=== PATIENT | male | born 1965 | race African-American/Black ===

== ENCOUNTER 2017-06-01 03:18 | Emergency (ER) | payer OTHER | END 2017-06-01 05:28 | disposition home or self-care (01) | LOC: ER 03:18 | DX: J32.9 Chronic sinusitis, unspecified (principal); Z88.8 Allergy status to other drugs, medicaments and biological substances | CPT/HCPCS: 99283 ==

== ENCOUNTER 2021-01-06 20:54 | Emergency (ER) | payer SELFPAY ==
[~2021-01-06] VITALS: Ht 170.2 cm; Wt 83.6 kg
[~2021-01-06 20:54] MED LIST: CEPH-264 PO; FEXO180T81 PO; MOME17SP NS
[2021-01-06 21:52] VITALS: BP 137/69
--- NOTE | 2021-01-06 22:27 | PHYS DOC ---
Past Medical History Past Medical History: No Pertinent History ([facility],[employer]) Past Surgical History: No Surgical History [facility] Smoking Status: Current Every Day Smoker Alcohol Use: Occasionally Drug Use: None [facility] General Adult EDM: Chief Complaint: HIP PAIN HPI: HPI: Patient is a 55 year old male who presents with lateral right hip pain after a fall. He walks with a cane. He states this was a month ago. He states he was not seen for the follow-up. Patient rating his pain at an 8 out of 10 and states it does not radiate is just aching. [facility] Review of Systems: Review of Systems: Constitutional: Denies fever or chills. [] Eyes: Denies change in visual acuity. [] HENT: Denies nasal congestion or sore throat. [] Respiratory: Denies cough or shortness of breath. [] Cardiovascular: Denies chest pain or edema. [] GI: Denies abdominal pain, nausea, vomiting, bloody stools or diarrhea. [] : Denies dysuria. [] Musculoskeletal: Denies back pain or + right hip joint pain. [] Integument: Denies rash. [] Neurologic: Denies headache, focal weakness or sensory changes. [] Endocrine: Denies polyuria or polydipsia. [] Lymphatic: Denies swollen glands. [] Psychiatric: Denies depression or anxiety. [] [facility] Heart Score: C/O Chest Pain: No ([facility] Allergies: Allergies: Allergies Coded Allergies Type Severity Reaction Last Updated Verified haloperidol Allergy Unknown 06/01/17 Yes lithium Allergy Unknown 06/01/17 Yes risperidone Allergy Unknown 06/01/17 Yes [facility] Physical Exam: PE: Constitutional: Well developed, well nourished, no acute distress, non-toxic appearance. [] HENT: Normocephalic, atraumatic, bilateral external ears normal, oropharynx moist, no oral exudates, nose normal. [] Eyes: PERRLA, EOMI, conjunctiva normal, no discharge. [] Neck: Normal range of motion, no tenderness, supple, no stridor. [] Cardiovascular:Heart rate regular rhythm, no murmur [] Lungs & Thorax: Bilateral breath sounds clear to auscultation [] Abdomen: Bowel sounds normal, soft, no tenderness, no masses, no pulsatile masses. [] Skin: Warm, dry, no erythema, no rash. [] Back: No tenderness, no CVA tenderness. [] Extremities: No tenderness, no cyanosis, no clubbing, ROM intact, no edema. [] Neurologic: Alert and oriented X 3, normal motor function, normal sensory function, no focal deficits noted. [] Psychologic: Affect normal, judgement normal, mood normal. [] Normal physical exam (HUGO ARMSTRONG APRN) EKG: EKG: [] (HUGO ARMSTRONG APRN) Radiology/Procedures: Radiology/Procedures: [] (HUGO ARMSTRONG APRN) Course & Med Decision Making: Course & Med Decision Making Pertinent Labs and Imaging studies reviewed. (See chart for details) See HPI. Alert and oriented x4. Ambulatory with a steady gait and uses a cane. Upon walking the room patient is asleep. Pupils pinpoint. Patient is talking slowly and seems to be intoxicated on either any drug or alcohol. Has full range of motion of all joints. No tenderness with palpation. No deformity in the joint. No redness or swelling. Bears weight on the joint. Denies any numbness or tingling. Pedal pulse strong present. No swelling of the extremity. Dr Russo read xray as no obvious acute findings. [] (HU[employer] ARMSTRONG APRN) Course & Med Decision Making I have participated in the care of this patient and I have reviewed and agree with all pertinent clinical information above including history, exam, and recommendations. (DEL RUSSO DO) Cooper Disclaimer: Cooper Disclaimer: This electronic medical record was generated, in whole or in part, using a voice recognition dictation system. (HUGO ARMSTRONG APRN) Departure Departure Impression: Primary Impression: Hip pain, right Disposition: HOME / SELF CARE / HOMELESS Condition: STABLE Referrals: NO PCP (PCP) MIR SCALES MD Patient Instructions: Hip Pain Additional Instructions: Follow-up with your primary care provider or the orthopedic I have referred you to. Take medication as prescribed and with food. Use ice or heat on the area. You can also use [id number] arthritis creams. Scripts Ibuprofen (IBUPROFEN) 600 Mg Tablet 600 MG PO PRN Q6HRS PRN for INFLAMMATION, #20 TAB Prov: HUGO ARMSTRONG APRN 01/06/21 HUGO ARMSTRONG APRN Jan 06, 2021 22:27 DEL RUSSO DO Jan 06, 2021 23:50
[2021-01-06] MEDS ORDERED: IBUP-1007 PO (22:49)
--- NOTE | 2021-01-06 23:23 | RAD ---
XR BILATERAL HIP (WITH OR WITHOUT PELVIS) 2 VIEWS_RIGHT History: Reason: PAIN AFTER FALL 1 MONTH AGO / Spl. Instructions: / History: Technique: AP view the pelvis and 2 additional views of the right hip. Comparison: None. Findings: No dislocation. No acute fracture. Mild right hip DJD. Heterotopic ossification adjacent to the left ischial tuberosity. Impression: 1. No acute osseous abnormality. 2. Mild right hip DJD. Electronically signed by: Tawanda Erickson DO (01/06/2021 11:21 PM) ROEL
== END 2021-01-06 23:26 | disposition home or self-care (01) ==
LOC: ER 20:54
DX: M25.551 Pain in right hip (principal); F17.200 Nicotine dependence, unspecified, uncomplicated; G89.11 Acute pain due to trauma; Z88.8 Allergy status to other drugs, medicaments and biological substances; W18.39XA Other fall on same level, initial encounter; Y93.89 Activity, other specified; Y92.89 Other specified places as the place of occurrence of the external cause; Y99.8 Other external cause status
CPT/HCPCS: 73502; 99283